=== PATIENT | female | born 1990 | race Caucasian/White ===

== ENCOUNTER 2021-09-05 12:05 | Outpatient (CLI) | payer OTHER, SELFPAY ==
[2021-09-05 16:53] LABS: TSH With Reflex to FT4* < 0.015 uIU/mL (0.270-4.200)
== END 2021-09-05 12:06 | disposition home or self-care (01) ==
PROVIDERS: PCP Family Medicine; Visit Provider Advanced Practice Midwife
DX: Z39.2 Encounter for routine postpartum follow-up (principal); E03.9 Hypothyroidism, unspecified; Z12.4 Encounter for screening for malignant neoplasm of cervix
CPT/HCPCS: 84439; 84443; 87624; 88175

== ENCOUNTER 2021-10-30 09:35 | Outpatient (CLI) | payer OTHER, SELFPAY ==
[2021-10-30 15:49] LABS: Creatine Kinase* 39 U/L (41-117)
[2021-10-30 15:56] LABS: C Reactive Protein* < 0.5 mg/dL (0.5-1.0)
[2021-10-30 16:20] LABS: TSH With Reflex to FT4* 0.939 uIU/mL (0.270-4.200)
[2021-11-01 17:49] LABS: Rheumatoid Factor < 10 IU/mL (0-14)
[2021-11-01 23:31] LABS: Anti-Nuclear Ab(ANA)IgG ELISA None Detected (None Detected)
== END 2021-10-30 09:36 | disposition home or self-care (01) ==
LOC: NFLDREF 13:22
PROVIDERS: PCP Family Medicine; Visit Provider Advanced Practice Midwife
DX: Z00.00 Encounter for general adult medical examination without abnormal findings (principal); E03.9 Hypothyroidism, unspecified; M25.50 Pain in unspecified joint
CPT/HCPCS: 82550; 84443; 86039; 86140; 86200; 86431

== ENCOUNTER 2022-03-19 09:25 | Outpatient (CLI) | payer OTHER, SELFPAY | END 2022-03-19 09:26 | disposition home or self-care (01) | LOC: NFLDREF 09:25 | PROVIDERS: PCP Family Medicine; Visit Provider Advanced Practice Midwife | DX: E03.9 Hypothyroidism, unspecified (principal) | CPT/HCPCS: 84443 ==

== ENCOUNTER 2023-07-06 15:22 | Outpatient (CLI) | payer OTHER, SELFPAY ==
--- OUTSIDE RECORDS SUMMARY | 2023-07-24 08:30 | XMS_ITS | Clinical Summary ---
Author Organization [facility] Address [address] [place] [address] Care Team Providers Care English Language Learner Teacher Name Role Phone iTm Rordiguez M.D. Primary Care Provider [phone] Source Comments Patient records contain information from all sites at [facility]. For routine questions regarding patient records, call [phone] during business hours, M-F 8:00 AM - 5:00 PM Central Time. Record requests for emergency care only can be directed to [phone] at any time.[facility] Allergies No known active allergies Medications Medication Sig Dispensed Refills Start Date End Date Status albuterol 90 mcg/actuation inhaler Inhale 2 puffs every 4 (four) hours as needed. for asthma Active ipratropium-albutero L (DUONEB) 0.5-2.5 mg/3 mL nebulizer solution USE 3 ML VIA NEBULIZER EVERY 4 HOURS NEEDED FOR SHORTNESS OF BREATH OR WHEEZING 01/14/2023 Active levothyroxine (SYNTHROID, LEVOTHROID) 88 mcg tablet Take 1 tablet by mouth daily. 03/17/2023 Active multivit no.77-bvho-yzalv acid (-U) 106.5-1 mg capsule Take 1 tablet by mouth daily. 03/09/2018 Active Pulmicort Flexhaler 90 mcg/actuation inhaler Inhale 2 puffs 2 (two) times a day. 2 each 11 03/31/2023 Active escitalopram (LEXAPRO) 10 mg tablet Take 1 tablet (10 mg total) by mouth daily. 90 tablet 3 03/31/2023 Active Encounters Date Type Department Care Team Description 06/23/2023 Orders Only [facility] Tim Rodriguez M.D. Hypothyroidism from Last 3 Months Immunizations Name Administration Dates Next Due HepA / HepB 08/01/2022,06/11/2022 IPV 09/01/2022,02/25/2022,12/23/2021 Influenza, Injectable, Mdck, Preservative Free, Quadrivalent 11/15/2022 MMR 04/06/2018,12/22/2017 Tdap 05/14/2021,03/30/2019 influenza vaccine quad (FLUZONE/FLUARIX) (6 months and older)(PF) 11/25/2021,12/18/2020,12/27/2019,2018 Family History Medical History Relation Name Comments pad Father Prediabetes Mother Relation Name Status Comments Father Alive Mother Alive Social History Tobacco Use Types Packs/Day Years Used Date Smoking Tobacco: Never Smokeless Tobacco: Never Tobacco Cessation:Counseling Given: Not Answered Alcohol Use Standard Drinks/Week Comments Not Currently 0 (1 standard drink = 0.6 oz pur e alcohol) [facility] Utilities Answer Date Recorded In the past 12 months has e [employer], gas, oil, or water [employer] threatened to shut off services in your home? No 03/31/2023 PHQ-2 Answer Date Recorded PHQ-2 Score 0 03/31/2023 Exercise Vital Sign Answer Date Recorde d On average, how many days pe r week do you engage in moderate to strenuous exercise (like a brisk walk)? 3 days Minutes of Exercise per Session Not on file 03/31/2023 Hunger Vital Sign Answer Date Recorded Within the past 12 months, y ou worried that your food would run out before you got the money to buy more. Never true 03/31/19 24 Within the past 12 months, t he food you bought just didn't last and you didn't have money to get more. Never true 03/31/2023 PRAPARE - Transportation Answer Date Re corded In the past 12 months, has l ack of transportation kept you from medical appointments or from getting medications? No 03/19 In the past 12 months, has l ack of transportation kept you from meetings, work, or from getting things needed for daily living? No 03/31/2023 Nutrition Answer Date Recorded Nutrition: EVOO Fat Source Unknown 03/31 On average, how many serving s of fruits and vegetables do you eat per day (serving size is equal to 1 cup or approximately the size of a tennis ball)? 5 or more 03/31/2023 Dental Answer Date Recorded Dental: Regular Dentist Yes 03/31/19 Employment Answer Date Recorded Employment status Unemployed/not in [employer] paid workforce and NOT seeking employment 03/31/2023 Housing Stability Answer Date Recorded What is your living situation today? [facility] place to live 03/31/2023 Sex and Gender Information Value Date Recorded Sex Assigned at Female 03/31/2023 8:33 AM APPLIED STATISTICIAN Gender Identity Female 03/31/2023 8:33 AM APPLIED STATISTICIAN Sexual Orientation Straight 03/31/2023 8: 33 AM APPLIED STATISTICIAN Last Filed Vital Signs Vital Sign Reading Time Taken Comments Blood Pressure 110/76 03/31/2023 8:23 AM APPLIED STATISTICIAN Pulse 81 03/31/2023 8:23 AM APPLIED STATISTICIAN Temperature 35.8 ??C (96.5 ??F) 03/31/2023 8:23 AM CS T Respiratory Rate 16 03/31/2023 8:23 AM APPLIED STATISTICIAN Oxygen Saturation - - Inhaled Oxygen Concentration - - Weight 73.1 kg (161 lb 0.7 oz) 03/31/2023 8:23 A M APPLIED STATISTICIAN Height 165 cm (5' 4.96) 03/31/2023 8:23 AM APPLIED STATISTICIAN Body Mass Index 26.83 03/31/2023 8:23 AM APPLIED STATISTICIAN Plan of Treatment Health Maintenance Due Date Last Done Comments Hepatitis C Screening 1990 Thyroid Stimulating Hormone (TSH) test for thyroid function 10/10/2019 10/09/2018, 03/19/2018 Hepatitis A Vaccines (3 of 3 - Hep A risk 3-dose series) 01/01/2023 08/01/2022, 06/11/2022 Hepatitis B Vaccines (3 of 3 - Hep B Twinrix 3-dose series) 01/01/2023 08/01/2022, 06/11/2022 Cervical Cancer Screening 09/05/2024 09/05/2021 DTaP,Tdap,and Td Vaccines (3 - Td or Tdap) 05/15/2031 05/14/2021, 03/30/2019 COVID-19 Vaccine Completed 11/15/2022, 07/2021, 06/13/2021, Additional history exists Influenza Vaccine Completed 11/15/2022, , 12/18/2020, Additional history exists Depression Screening (Annual PHQ-2) Completed 03/31/2023, 03/31/2023 HPV Vaccines Aged Out No longer eligi ble based on patient's age to complete this topic Pneumococcal vaccine (0-64 years) Aged Out No longer eligible based on patient's age to complete this topic Procedures Procedure Name Priority Date/Time Associated Diagnosis Comments EXTI THYROID-STIMULATING HORMONE-SENSITIVE (S-TSH), S Routine 10/09/2018 10:08 AM CDT from Last 3 Months or Most Recently Relevant to Health Maintenance Care Teams English Language Learner Teacher Relationship Specialty Start Date End Date Tim Rodriguez M.D. [address] [place] [phone] PCP - General Family Medicine 03/17/23
--- OUTSIDE RECORDS SUMMARY | 2023-07-24 08:31 | XMS_ITS | Referral Summary ---
Author Organization [facility] Address [address] [place] [address] Care Team Providers Care Head Up Operator Name Role Phone Tim Rodriguez M.D. Primary Care Provider Source Comments Patient records contain information from all sites at [facility]. For routine questions regarding patient records, call [phone] during business hours, M-F 8:00 AM - 5:00 PM Central Time. Record requests for emergency care only can be directed to [phone] at any time.[facility] Encounters Date Type Department Care Team Description 06/23/2023 Orders Only [facility] [place] Tim Rodriguez M.D. Hypothyroidism from Last 3 Months Allergies No known active allergies Medications Medication [...] tablet by mouth daily. 03/17/2023 Active multivit no.46-iait-ufchn acid (-U) 106.5-1 mg capsule Take 1 tablet by mouth daily. 03/09/2018 Active Pulmicort Flexhaler 90 mcg/actuation inhaler Inhale 2 puffs 2 (two) times a day. 2 each 11 03/31/2023 Active escitalopram (LEXAPRO) 10 mg tablet Take 1 tablet (10 mg total) by mouth daily. 90 tablet 3 03/31/2023 Active Immunizations Name Administration Dates Next Due HepA / HepB 08/01/2022,06/11/2022 IPV 09/01/2022,02/25/2022,12/23/2021 Influenza, Injectable, Mdck, Preservative Free, Quadrivalent 11/15/2022 MMR 04/06/2018,12/22/2017 Tdap 05/14/2021,03/30/2019 influenza vaccine quad (FLUZONE/FLUARIX) (6 months and older)(PF) 11/25/2021,12/18/2020,12/27/2019,2018 Social History Tobacco Use Types Packs/Day Years Used Date Smoking Tobacco: Never Smokeless Tobacco: Never Tobacco Cessation:Counseling Given: Not Answered Alcohol Use Standard Drinks/Week Comments Not Currently 0 (1 standard drink = 0.6 oz pur e alcohol) [facility] [employer] Answer Date Recorded In the past 12 months has e [employer], gas, oil, or water [employer] threatened to shut off services in your [...] Answer Date Recorded Employment status Unemployed/not in e paid workforce and NOT seeking employment 03/31/2023 Housing Stability Answer Date Recorded What is your living situation today? I have a [facility] place to live 03/31/2023 Sex and Gender Information Value Date Recorded Sex Assigned at Female 03/31/2023 8:33 AM STAVE INSPECTOR Gender Identity Female 03/31/2023 8:33 AM STAVE INSPECTOR Sexual Orientation Straight 03/31/2023 8: 33 AM STAVE INSPECTOR Last Filed Vital Signs Vital Sign Reading Time Taken Comments Blood Pressure 110/76 03/31/2023 8:23 AM STAVE INSPECTOR Pulse 81 03/31/2023 8:23 AM STAVE INSPECTOR Temperature 35.8 ??C (96.5 ??F) 03/31/2023 8:23 AM CS T Respiratory Rate 16 03/31/2023 8:23 AM STAVE INSPECTOR Oxygen Saturation - - Inhaled Oxygen Concentration - - Weight 73.1 kg (161 lb 0.7 oz) 03/31/2023 8:23 A M STAVE INSPECTOR Height 165 cm (5' 4.96) 03/31/2023 8:23 AM STAVE INSPECTOR Body Mass Index 26.83 03/31/2023 8:23 AM STAVE INSPECTOR Plan of Treatment Not on file Procedures Procedure Name Priority Date/Time Associated Diagnosis Comments EXTI THYROID-STIMULATING HORMONE-SENSITIVE (S-TSH), S Routine 10/09/2018 10:08 AM CDT from Last 3 Months or Most Recently Relevant to Health Maintenance Care Teams Head Up Operator Relationship Specialty Start Date End Date Tim Rodriguez M.D. [address] [place], [place] [address]MATTHEW naranjo [phone] PCP - General Family Medicine 03/17/23
--- OUTSIDE RECORDS SUMMARY | 2023-07-24 08:31 | XMS_ITS ---
Author Organization [facility] Address [address] [place] [address] Care Team Providers Care Property Claims Adjuster Name Role Phone Unavailable Unavailable Unavailable Surgery Details Not on file Complications Check Surgery Details section. Procedure Estimated Blood Loss Check Surgery Details section. Procedure Findings Check Surgery Details section. Procedure Specimens Taken Check Surgery Details section.
--- OUTSIDE RECORDS SUMMARY | 2023-07-24 08:31 | XMS_ITS | Clinical Summary ---
Author Organization [facility] Address [place], [place] [address] Care Team Providers Care Denture Model Maker Name Role Phone Lizzy Lovell MD Unavailable Unavailable Clinic, [facility] Primary Care Pro vider Allergies No known active allergies Medications Medication Sig Dispensed Refills Start Date End Date Status albuterol HFA 90 mcg/actuation inhalerIndications:Mil d persistent asthma without complication Inhale 1-2 Puffs by mouth every 6 hours if needed. 1 Inhaler 11 12/22/2017 Active vitamin-folic acid 1 mg ( RX) tablet/capsule Take 1 tablet by mouth once daily. 0 03/09/2018 Active beclomethasone dipropionate (QVAR REDIHALER) 80 mcg/actuation HFAbIndications:Mild persistent asthma without complication Inhale 1 Puff by mouth 2 times daily. 1 Inhaler 11 03/09/2018 Active loratadine (CLARITIN) 10 mg tabletIndications:Mild persistent asthma without complication Take 1 tablet by mouth once daily. 90 tablet 3 03/09/2018 Active EUTHYROX 75 mcg tabletIndications:Dise ase of thyroid gland TAKE 1 TABLET BY MOUTH ONCE DAILY 30 tablet 12/09/2018 Active Active Problems Problem Noted Date Diagnosed Date Supervision of normal first 10/25/2018 Pap smear abnormality of cervix with ASCUS favor ing benign 02/16/2015 Overview: 2015 ASCUS. 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 Overview: [facility] Maintenance 07/21/2005 Asthma Immunizations Name Administration Dates Next Due MMR 04/06/2018,12/22/2017 Family History Medical History Relation Name Comments Good Health Brother Hyperlipidemia Father Good Health Maternal Grandfather Diabetes Maternal Grandmother Obesity Mother Cancer-prostate Paternal Grandfather Cataracts Paternal Grandfather Stroke Paternal Grandmother Good Health Sister Relation Name Status Comments Brother Alive Father Alive Maternal Grandfather Alive Maternal Grandmother Alive Mother Alive Paternal Grandfather Alive Paternal Grandmother (Age 86) ol d age Sister Alive Social History Tobacco Use Types Packs/Day Years Used Date Smoking Tobacco: Never Smokeless Tobacco: Never Alcohol Use Standard Drinks/Week Comments Not Currently 0 (1 standard drink = 0.6 oz pur e alcohol) rare Humiliation, Afraid, Rape, and Kick questionnair e Answer Date Recorded Fear of Current or Ex-Partner No Emotionally Abused No 10/25/2018 Physically Abused No 10/25/2018 Sexually Abused No 10/25/2018 PHQ-2 Answer Date Recorded PHQ-2 Score 0 04/20/2018 [facility] - Occupational Stress Questionnaire Answer Date Recorded Feeling of Stress To some extent 10/25/2018 Exercise Vital Sign Answer Date Recorde d Days of Exercise per Week 5 days 2018 Minutes of Exercise per Session 60 min 10/25/2018 Education Answer Date Recorded What is the highest level of school you have completed or the highest degree you have received? Bachelor's degree (e.g., BA, AB, BS) 10/25/2018 Sex and Gender Information Value Date Recorded Sex Assigned at Not on file Gender Identity Not on file Sexual Orientation Not on file Obstetrics History Para Term AB IAB SAB Ectopic Multiple Livin g Live Births 1 0 0 0 0 0 0 0 Date Outcome GA Total Labor Labor/2nd/3rd Weight Sex Delivery Anes PTL Linda A1 A5 Name Cl in Last Filed Vital Signs Vital Sign Reading Time Taken Comments Blood Pressure 100/56 12/06/2018 7:59 AM CDT Pulse 92 12/06/2018 7:59 AM CDT Temperature 36.4 ??C (97.6 ??F) 03/03/2008 2:50 AM CS T Respiratory Rate 19 03/09/2018 9:32 AM VAMP MARKER Oxygen Saturation 99% 12/06/2018 7:59 AM CDT Inhaled Oxygen Concentration - - Weight 63.9 kg (140 lb 14.4 oz) 12/06/2018 7:59 AM CDT Height 165.4 cm (5' 5.12) 12/06/2018 7:59 AM CD T Body Mass Index 23.36 12/06/2018 7:59 AM CDT Plan of Treatment Health Maintenance Due Date Last Done Comments Tdap 11/09/1999 HIV for age 15-65 11/09/2003 Hepatitis C screening for age 18-79 2006 Tetanus booster 2008 BMI (ht and wt on same day) for age 18+ 12/07/2019 12/06/2018, 10/25/2018, 10/22/2018, Additional history exists Depression screening for age 12+ 12/09/2019 12/08/2018, 12/06/2018, 12/06/2018, Additional history exists COVID-19 vaccine series (2022- season) 2022 Influenza for age 9-49 10/18/2023 Pap test for age 21-65 09/05/2024 2, 09/05/2021, 03/09/2018, Additional history exists Pneumococcal series for age 6-64 Aged Out No longer eligible based on patient's age to complete this topic Procedures Procedure Name Priority Date/Time Associated Diagnosis Comments HPV THIN PREP Routine 09/05/2021 12:00 PM CDT from Last 3 Months or Most Recently Relevant to Health Maintenance Results * HPV HIGH RISK (09/05/2021 12:00 PM CDT) TYPE 16 Negative Negative 09/13/2021 2:40 PM CDT [facility] TR[facility] LABOR[facility] TYPE 18 Negative Negative 09/13/2021 2:40 PM CDT [facility] TRAL LABORATORY OTHER HIGH RISK TYPES Negative Negative 09/13/2021 2:40 PM CDT [facility] TRAL LAB[facility]ATORY Other (Cervical/Vagina l) Client Collect / Unknown 09/05/2021 12:00 PM CDT 09/11/2021 8:24 AM [facility] 09/13/2021 2:40 PM CDT HPV types 16, 18, 31, 33, 35, 39, 45, 51, 52, 56, 58, 59, 66 and 68 DNA were undetectable or below the pre-set threshold. Methodology: Angelo Deyanira 4800 HPV Test Chacha Sreekanth Simon [facility] MICROBIOLOGY [facility] LABORATORY-CENTRAL LABORATORY [address] [place] [address], from Last 3 Months or Most Recently Relevant to Health Maintenance Care Teams Denture Model Maker Relationship Specialty Start Date End Date Clinic, [address] [place] [address] PCP - General 11/30/20 Lizzy Lovell MD 12/22/17
--- OUTSIDE RECORDS SUMMARY | 2023-07-24 08:31 | XMS_ITS | Encounter Summary ---
Author Organization [facility] Address [address] [place] [address] Care Team Providers Care Grading Machine Operator Name Role Phone Tim Rodriguez M.D. Primary Care Provider Encounter Details Date Type Department Care Team (Late st Contact Info) Description 06/23/2023 Orders Only [facility] Tim Rodriguez M.D. [address] [place] [phone] Hypothyroidism Social History Tobacco Use Types Packs/Day Years Used Date Smoking Tobacco: Never Smokeless Tobacco: Never Alcohol Use Standard Drinks/Week Comments Not Currently 0 (1 standard drink = 0.6 oz pur e alcohol) [facility] Utilities Answer Date Recorded In the past 12 months has th e electric, gas, oil, or water company threatened to shut off services in your [...] your living situation today? I have a [facility] place to live 03/31/2023 Sex and Gender Information Value Date Recorded Sex Assigned at Female 03/31/2023 8:33 AM SECTION GANG WORKER Gender Identity Female 03/31/2023 8:33 AM SECTION GANG WORKER Sexual Orientation Straight 03/31/2023 8: 33 AM SECTION GANG WORKER documented as of this encounter Plan of Treatment Scheduled Orders Name Type Priority Associated Diagnoses Orde r Schedule S-TSH (Thyroid-Stimulating Hormone - Sensitive) Lab Routine Hypothyroidism Expected: 07/07/2023, Expires: 12/20/2023 documented as of this encounter Visit Diagnoses Diagnosis Hypothyroidism documented in this encounter Care Teams Grading Machine Operator Relationship Specialty Start Date End Date Tim Rodriguez M.D. [address] [place] [phone] PCP - General Family Medicine 03/17/23 documented as of this encounter
== END 2023-07-06 15:23 | disposition home or self-care (01) ==
LOC: NFLDREF 07-24 08:28
PROVIDERS: PCP Family Medicine; Referring Provider Family Medicine; Visit Provider Family Medicine
DX: E03.9 Hypothyroidism, unspecified (principal)
CPT/HCPCS: 84443

== ENCOUNTER 2023-09-25 09:53 | Outpatient (CLI) | payer OTHER, SELFPAY ==
--- OUTSIDE RECORDS SUMMARY | 2023-09-29 18:39 | XMS_ITS | Encounter Summary ---
Author Organization [facility] Address [address] [place] [address] Care Team Providers Care Proposition Player Name Role Phone Tim Rodriguez M.D. Primary Care Provider Encounter Details Date Type Department Care Team (Late st Contact Info) Description 06/23/2023 Orders Only [facility] Tim Rodriguez M.D. [address] [place] [phone] Hypothyroidism Social History Tobacco Use Types Packs/Day Years Used Date Smoking Tobacco: Never Smokeless Tobacco: Never Alcohol Use Standard Drinks/Week Comments Not Currently 0 (1 standard drink = 0.6 oz pur e alcohol) [facility] Utilities Answer Date Recorded In the [...] your living situation today? I have a [facility] place to live 03/31/2023 Sex and Gender Information Value Date Recorded Sex Assigned at Female 03/31/2023 8:33 AM DATABASE SUPPORT Gender Identity Female 03/31/2023 8:33 AM DATABASE SUPPORT Sexual Orientation Straight 03/31/2023 8: 33 AM DATABASE SUPPORT documented as of this encounter Plan of Treatment Scheduled Orders Name Type Priority Associated Diagnoses Orde r Schedule S-TSH (Thyroid-Stimulating Hormone - Sensitive) Lab Routine Hypothyroidism Expected: 07/07/2023, Expires: 12/20/2023 documented as of this encounter Visit Diagnoses Diagnosis Hypothyroidism documented in this encounter Care Teams Proposition Player Relationship Specialty Start Date End Date Tim Rodriguez M.D. [address] [place] [phone] PCP - General Family Medicine 03/17/23 documented as of this encounter
--- OUTSIDE RECORDS SUMMARY | 2023-09-29 18:39 | XMS_ITS | Clinical Summary ---
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 of Occupat ional Health - Occupational Stress [...] Outcome GA Total Labor Labor/2nd/3rd Weight Sex Type Anes PTL Linda A1 A5 Name Clin Last Filed Vital Signs Vital Sign Reading Time Taken Comments Blood Pressure 100/56 12/06/2018 7:59 AM CDT Pulse 92 12/06/2018 7:59 AM CDT Temperature 36.4 ??C (97.6 ??F) 03/03/2008 2:50 AM CS T Respiratory Rate 19 03/09/2018 9:32 AM TAR DISTRIBUTOR OPERATOR Oxygen Saturation 99% 12/06/2018 7:59 AM CDT [...] 10/18/2023 Pap test for age 21-65 09/05/2024 , 09/05/2021, 03/09/2018, Additional history exists Pneumococcal series [...] 16 Negative Negative 09/13/2021 2:40 PM CDT [facility] TRAL LABORATORY TYPE 18 Negative Negative 09/13/2021 2:40 PM CDT [facility] TRAL LABORATORY OTHER HIGH RISK TYPES Negative Negative 09/13/2021 2:40 PM CDT [facility] TRAL LABORATORY Other (Cervical/Vagina l) Client Collect / Unknown 09/05/2021 12:00 PM CDT 09/11/2021 8:24 AM [facility] 09/13/2021 2:40 PM CDT HPV types 16, 18, 31, 33, 35, 39, 45, 51, 52, 56, 58, 59, 66 and 68 DNA were undetectable or below the pre-set threshold. Methodology: Angelo Deyanira 4800 HPV Test Chacha Sreekanth Simon [facility] MICROBIOLOGY [facility] LABORATORY-CENTRAL LABORATORY [address] [place] [address], from Last 3 Months or Most Recently Relevant to Health Maintenance Care Teams Photographic Technician Relationship Specialty Start Date End Date Clinic, [address] [address] PCP - General 11/30/20 Lizzy Lovell MD 12/22/17
--- OUTSIDE RECORDS SUMMARY | 2023-09-29 18:39 | XMS_ITS | Clinical Summary ---
Author Organization [facility] Address [address] [place] [address] Care Team Providers Care Electronic Health Records Specialist Name Role Phone Tim Rodriguez M.D. Primary Care Provider [phone] Source Comments Patient records contain information from all sites at [facility]. For routine questions regarding patient records, call [phone] during business hours, M-F 8:00 AM - 5:00 PM Central Time. Record requests for emergency care only can be directed to [phone] at any time.[facility] Allergies No known active allergies Medications Medication [...] tablet by mouth daily. 03/17/2023 Active multivit no.06-jwtu-ghndx acid (-U) 106.5-1 mg capsule Take 1 [...] drink = 0.6 oz pur e alcohol) [facility] Utilities Answer Date Recorded In the past 12 months has e [employer], gas, oil, or water [employer] threatened to shut off services in your [...] your living situation today? I have a [facility] place to live 03/31/2023 Sex and Gender Information Value Date Recorded Sex Assigned at Female 03/31/2023 8:33 AM GEOSPATIAL TECHNOLOGIST Gender Identity Female 03/31/2023 8:33 AM GEOSPATIAL TECHNOLOGIST Sexual Orientation Straight 03/31/2023 8: 33 AM GEOSPATIAL TECHNOLOGIST Last Filed Vital Signs Vital Sign Reading Time Taken Comments Blood Pressure 110/76 03/31/2023 8:23 AM GEOSPATIAL TECHNOLOGIST Pulse 81 03/31/2023 8:23 AM GEOSPATIAL TECHNOLOGIST Temperature 35.8 ??C (96.5 ??F) 03/31/2023 8:23 AM CS T Respiratory Rate 16 03/31/2023 8:23 AM GEOSPATIAL TECHNOLOGIST Oxygen Saturation - - Inhaled Oxygen Concentration - - Weight 73.1 kg (161 lb 0.7 oz) 03/31/2023 8:23 A M GEOSPATIAL TECHNOLOGIST Height 165 cm (5' 4.96) 03/31/2023 8:23 AM GEOSPATIAL TECHNOLOGIST Body Mass Index 26.83 03/31/2023 8:23 AM GEOSPATIAL TECHNOLOGIST Plan of Treatment Health Maintenance Due Date Last Done Comments Hepatitis C Screening 1990 Thyroid Stimulating Hormone (TSH) test for thyroid function 10/10/2019 10/09/2018, 03/19/2018 Hepatitis A Vaccines (3 of 3 - Hep A risk 3-dose series) 01/01/2023 08/01/2022, 06/11/2022 Hepatitis B Vaccines (3 of 3 - Hep B Twinrix 3-dose series) 01/01/2023 08/01/2022, 06/11/2022 Influenza Vaccine (#1) 2023 , 11/25/2021, 12/18/2020, Additional history exists Cervical Cancer Screening 09/05/2024 09/05/2021 DTaP,Tdap,and Td Vaccines (3 - Td or Tdap) 05/15/2031 05/14/2021, 03/30/2019 COVID-19 Vaccine Completed 11/15/2022, 07/2021, 06/13/2021, Additional history exists Depression Screening (Annual PHQ-2) Completed 03/31/2023, 03/31/2023 HPV Vaccines Aged Out No longer eligi ble based on patient's age to complete this topic Pneumococcal vaccine (0-64 years) Aged Out No longer eligible based on patient's age to complete this topic Care Teams Electronic Health Records Specialist Relationship Specialty Start Date End Date Tim Rodriguez M.D. NPAmanda: [phone] [address] [place] [phone] PCP - General Family Medicine 03/17/23
--- OUTSIDE RECORDS SUMMARY | 2023-09-29 18:39 | XMS_ITS | Referral Summary ---
Author Organization [facility] Address [address] [place] [address] Care Team Providers Care Licensing And Registration Director Name Role Phone Tim Rodriguez M.D. Primary Care Provider [phone] Source Comments Patient records contain information from all sites at [facility]. For routine questions regarding patient records, call [phone] during business hours, M-F 8:00 AM - 5:00 PM Central Time. Record requests for emergency care only can be directed to [phone] at any time.[facility] Allergies No known active allergies Medications [...] tablet by mouth daily. 03/17/2023 Active multivit no.25-lowy-tbpmp acid (-U) 106.5-1 mg capsule Take 1 [...] In the past 12 months has e [employer], gas, oil, or water [employer] threatened to shut off services in your [...] money to buy more. Never true 03/31/19 Within the past 12 months, t he [...] your living situation today? I have a [facility] place to live 03/31/2023 Sex and Gender Information Value Date Recorded Sex Assigned at Female 03/31/2023 8:33 AM MEAT MOLDER Gender Identity Female 03/31/2023 8:33 AM MEAT MOLDER Sexual Orientation Straight 03/31/2023 8: 33 AM MEAT MOLDER Last Filed Vital Signs Vital Sign Reading Time Taken Comments Blood Pressure 110/76 03/31/2023 8:23 AM MEAT MOLDER Pulse 81 03/31/2023 8:23 AM MEAT MOLDER Temperature 35.8 ??C (96.5 ??F) 03/31/2023 8:23 AM CS T Respiratory Rate 16 03/31/2023 8:23 AM MEAT MOLDER Oxygen Saturation - - Inhaled Oxygen Concentration - - Weight 73.1 kg (161 lb 0.7 oz) 03/31/2023 8:23 A M MEAT MOLDER Height 165 cm (5' 4.96) 03/31/2023 8:23 AM MEAT MOLDER Body Mass Index 26.83 03/31/2023 8:23 AM MEAT MOLDER Plan of Treatment Not on file Care Teams Licensing And Registration Director Relationship Specialty Start Date End Date Tim Rodriguez M.D. [address] [place] [phone] PCP - General Family Medicine 03/17/23
--- OUTSIDE RECORDS SUMMARY | 2023-09-29 18:39 | XMS_ITS ---
Author Organization [facility] Address [address] [place] [address] Care Team Providers Care Mortgage Loan Originator Name Role Phone Unavailable Unavailable Unavailable Surgery Details Not on file Complications Check Surgery Details section. Procedure Estimated Blood Loss Check Surgery Details section. Procedure Findings Check Surgery Details section. Procedure Specimens Taken Check Surgery Details section.
== END 2023-09-25 09:54 | disposition home or self-care (01) ==
LOC: NFLDREF 09-29 18:37
PROVIDERS: PCP Family Medicine; Referring Provider Family Medicine; Visit Provider Family Medicine
DX: E03.9 Hypothyroidism, unspecified (principal)
CPT/HCPCS: 84439; 84443

== ENCOUNTER 2024-11-25 09:43 | Outpatient (CLI) | payer OTHER, SELFPAY ==
[2024-11-25 18:53] LABS: Chlamydia DNA Amplified* NOT DETECTED (No Detected); GC DNA Amplified* NOT DETECTED (No Detected)
[2024-11-29 18:07] LABS: HPV Source Cervical
[2024-12-02 16:03] LABS: Pap Test Digital Imaging Done
== END 2024-11-25 09:44 | disposition home or self-care (01) ==
PROVIDERS: PCP Family Medicine; Visit Provider Advanced Practice Midwife
DX: O09.521 Supervision of elderly multigravida, first trimester (principal); Z12.4 Encounter for screening for malignant neoplasm of cervix
CPT/HCPCS: 83020; 83021; 84443; 85660; 86592; 86703; 86704; 86706; 86762; 86787; 86803; 86850; 86900; 86901; 87086; 87340; 87491; 87591; 87624; 87625; 88141; 88142; 88175

== ENCOUNTER 2025-01-02 08:04 | Outpatient (CLI) | payer OTHER, SELFPAY | END 2025-01-02 08:05 | disposition home or self-care (01) | LOC: NFLDREF 01-05 06:44 | PROVIDERS: PCP Family Medicine; Referring Provider Family Medicine; Visit Provider Advanced Practice Midwife | DX: E03.9 Hypothyroidism, unspecified (principal); O09.521 Supervision of elderly multigravida, first trimester | CPT/HCPCS: 84439; 84443 ==